=== PATIENT | female | born 1970 | race Caucasian/White ===

== ENCOUNTER 2019-09-06 15:57 | Emergency (ER) | payer SELFPAY ==
[~2019-09-06] VITALS: Ht 165.1 cm; Wt 67.6 kg
[2019-09-06 16:16] VITALS: Ht 165.1 cm; Wt 67.6 kg
[2019-09-06 19:02] LABS: BASOPHIL % 0.2 % (0-2); PLATELET COUNT 155 x10^3mcL (130-400); RED CELL DISTRIBUTION WIDTH 13.2 % (11.5-14.5)
[2019-09-06 19:14] LABS: CARBON DIOXIDE 32.6 mmol/L (21-32); CHLORIDE SERUM 100 mmol/L (98-107); CREATININE SERUM 0.7 mg/dL (0.6-1.0); GFR1 > 60 mL/min; GLUCOSE SERUM 139 mg/dL (74-106); POTASSIUM SERUM 3.4 mmol/L (3.5-5.1); SODIUM SERUM 141 mmol/L (136-145)
[2019-09-06 19:19] LABS: ALBUMIN 3.9 g/dL (3.4-5.0); ALKALINE PHOSPHATASE 141 U/L (46-116); ALT/SGPT 39 U/L (14-59); AST/SGOT 31 U/L (15-37); BILIRUBIN TOTAL 0.31 mg/dL (0.20-1.00)
[2019-09-06 19:21] LABS: TOTAL PROTEIN, SERUM 8.6 g/dL (6.4-8.2)
[2019-09-06 22:20] VITALS: BP 137/77
== END 2019-09-06 22:20 | disposition home or self-care (01) ==
LOC: ED 15:57
PROVIDERS: Emergency Medicine
DX: J10.1 Influenza due to other identified influenza virus with other respiratory manifestations (principal); R91.8 Other nonspecific abnormal finding of lung field
CPT/HCPCS: 87804; J2405; J7030

== ENCOUNTER 2020-01-26 23:00 | Emergency (ER) | payer OTHER ==
[~2020-01-26] VITALS: Ht 154.9 cm; Wt 81.6 kg
[2020-01-26 23:06] VITALS: Ht 154.9 cm; Wt 81.6 kg
[2020-01-26 23:30] VITALS: BP 144/61
== END 2020-01-26 23:06 | disposition home or self-care (01) ==
LOC: ED 23:00
DX: M75.52 Bursitis of left shoulder (principal); Z85.118 Personal history of other malignant neoplasm of bronchus and lung